=== PATIENT | male | born 1980 | race Caucasian/White ===

== ENCOUNTER 2021-12-13 04:12 | Emergency (ER) | payer MEDICAID ==
[~2021-12-13] VITALS: Ht 172.7 cm; Wt 86.6 kg
[2021-12-13 04:20] VITALS: BP 155/92
[2021-12-13] MEDS ORDERED: HYDROcodone/APAP 10/325 MG 1 TAB TAB PO ONE (04:30)
--- NOTE | 2021-12-13 04:30 | NUR ---
ER MD AT BEDSIDE EXAMING PT
--- NOTE | 2021-12-13 04:33 | NUR ---
41 Y/O MALE BIBS, C/O NOSE PAIN X1 DAY. PATIENT PRESENTS TO ED WITH SWELLING TO HIS NOSE AND UPPER LIP. PT STATES HE USED SOME DIRTY SCISSORS FOR GROOMING. PT STATES HE HAS HEADACHE TO FRONT, BACK, AND RIGHT SIDE OF HIS HEAD. DENIES N/V/D; SKIN IS PINK/WARM/DRY; AAOX4 WITH EVEN AND STEADY GAIT; LUNGS CLEAR BL; HR EVEN AND REGULAR; PT DENIES ANY FEVER, CP, SOB, OR COUGH AT THIS TIME; PATIENT STATES PAIN OF 10/10 AT THIS TIME; VSS; PATIENT POSITIONED FOR COMFORT; HOB ELEVATED; BEDRAILS UP X2; BED DOWN. ER MD MADE AWARE OF PT STATUS. DENIES PHM OR MEDS NKA
--- NOTE | 2021-12-13 04:47 | NUR ---
PT LEFT FOR CT
[2021-12-13] MEDS ORDERED: HYDR-5080 PO (05:05)
[2021-12-13] MEDS ORDERED: CLIN300C2 PO (05:05)
--- NOTE | 2021-12-13 05:09 | NUR ---
Patient does not wish to proceed with medical care recommended by []. Patient given information related to possible complications, up to and including , which could occur as a result of leaving hospital at this time. Patient verbalizes understanding of risks involved leaving against medical advice. Patient has signed AMA form.Patient does not wish to proceed with medical care recommended by DR YOU. Patient given information related to possible complications, up to and including , which could occur as a result of leaving hospital at this time. Patient verbalizes understanding of risks involved leaving against medical advice. Patient has signed AMA form. Wristband removed. VSS.
== END 2021-12-13 05:09 | disposition left against medical advice (07) ==
LOC: MED 04:12
DX: J34.0 Abscess, furuncle and carbuncle of nose (principal); F17.200 Nicotine dependence, unspecified, uncomplicated; F12.90 Cannabis use, unspecified, uncomplicated; Z79.899 Other long term (current) drug therapy
CPT/HCPCS: 70486; 99284

== ENCOUNTER 2021-12-14 04:03 | Emergency (ER) | payer MEDICAID ==
[~2021-12-14 04:03] MED LIST: CLIN300C2 PO; HYDR-5080 PO
--- NOTE | 2021-12-14 04:11 | NUR ---
PT TAKEN TO BED 1
--- NOTE | 2021-12-14 04:17 | NUR ---
PATIENT LEFT WITHOUT BEING SEEN BY DR. MCMILLAN. NO FURTHER CARE PROVIDED FOR PATIENT.
--- NOTE | 2021-12-14 04:17 | NUR ---
UNABLE TO COMPLETE TRIAGE PATIENT WAS NON-COMPLIANT.
--- NOTE | 2021-12-14 04:17 | NUR ---
PATIENT REFUSING VSS AND CARE.
== END 2021-12-14 04:17 | disposition left against medical advice (07) ==
LOC: MED 04:03
DX: L02.91 Cutaneous abscess, unspecified (principal); Z53.21 Procedure and treatment not carried out due to patient leaving prior to being seen by health care provider